=== PATIENT | female | born 1985 | race Caucasian/White ===

== ENCOUNTER 2019-08-20 06:54 | Day surgery (SDC) | payer BC ==
[2019-08-20] MEDS ORDERED: Sodium Chloride 0.9% 10 ML Syringe FLUSH PRN (07:00)
[2019-08-20] MEDS ORDERED: Lactated Ringers 1,000 ML IV SCH (07:00)
[2019-08-20] MEDS ORDERED: Lidocaine 1%/Sod Bicarbonate in NS 8.4% 1 ML Syringe IDERM PRN (07:00)
[2019-08-20] MEDS ORDERED: Bupivacaine 0.5% 30 ML SDV ONE (07:04)
[2019-08-20] MEDS ORDERED: Lidocaine 1% with EPINEPHrine 1:100,000 20 ML MDV ONE (07:04)
[2019-08-20] MEDS ORDERED: Lactated Ringers 1,000 ML ONE ×2 (07:17→09:51)
[2019-08-20] MEDS ORDERED: Ondansetron 4 MG/2 ML SDV ONE (07:17)
[2019-08-20] MEDS ORDERED: fentaNYL 250 MCG/5 ML SDV ONE (07:17)
[2019-08-20] MEDS ORDERED: Lidocaine 1% 4 ML ONE (07:17)
[2019-08-20] MEDS ORDERED: ceFAZolin 1 GM Vial ONE (07:17)
[2019-08-20] MEDS ORDERED: Propofol 200 MG/20 ML SDV ONE ×3 (07:17→09:29)
[2019-08-20] MEDS ORDERED: Midazolam 1 MG/ML 2 ML SDV ONE (07:17)
[2019-08-20] MEDS ORDERED: Rocuronium 50 MG/5 ML Vial ONE (07:17)
[2019-08-20] MEDS ORDERED: Ketamine 500 mg/10 ML MDV ONE (07:21)
--- NOTE | 2019-08-20 07:41 | PCM.PREANE ---
Preanesthetic Assessment - Procedure Proposed Procedure: Lap assisted vaginal hysterectomy - Anesthesia/Transfusion/Family Hx Anesthesia History: Prior Anesthesia Without Reaction Family History of Anesthesia Reaction: No Transfusion History: No Prior Transfusion(s) - Review of Systems General: No Symptoms Pulmonary: No Symptoms Cardiovascular: No Symptoms Gastrointestinal: No Symptoms Neurological: No Symptoms, Other (Fibromyalgia with daily marijuana use.) Other: Reports: Anxiety (PTSD) - Physical Assessment NPO Status Date: 08/19/19 NPO Status Time: 21:00 Vital Signs: Last Vital Signs Temp 37.0 C 08/20/19 07:05 Pulse 65 08/20/19 07:05 Resp 16 08/20/19 07:05 BP 111/82 08/20/19 07:05 Pulse Ox 98 08/20/19 07:05 Height: 1.6 m Weight: 77.111 kg ASA Class: 2 Mental Status: Alert & Oriented x3 Airway Class: Mallampati = 1 Dentition: Reports: Normal Dentition (Cap on molar, fillings. ) Thyro-Mental Finger Breadths: 3 Mouth Opening Finger Breadths: 3 ROM/Head Extension: Full Lungs: Clear to Auscultation, Normal Respiratory Effort Cardiovascular: Regular Rate, Regular Rhythm - Lab Values: Laboratory Last Values WBC 8.94 K/mm3 (3.98-10.04) 08/20/19 07:13 RBC 4.57 M/mm3 (3.98-5.22) 08/20/19 07:13 Hgb 14.1 gm/dl (11.2-15.7) 08/20/19 07:13 Hct 42.0 % (34.1-44.9) 08/20/19 07:13 MCV 91.9 fl (79.4-94.8) 08/20/19 07:13 MCH 30.9 pg (25.6-32.2) 08/20/19 07:13 MCHC 33.6 g/dl (32.2-35.5) 08/20/19 07:13 RDW Std Deviation 45.6 fL (36.4-46.3) 08/20/19 07:13 Plt Count 261 K/mm3 (182-369) 08/20/19 07:13 MPV 9.4 fl (9.4-12.3) 08/20/19 07:13 Neut % (Auto) 64.3 % (34.0-71.1) 08/20/19 07:13 Lymph % (Auto) 24.5 % (19.3-51.7) 08/20/19 07:13 [place] % (Auto) 8.7 % (4.7-12.5) 08/20/19 07:13 Eos % (Auto) 1.9 (0.7-5.8) 08/20/19 07:13 Baso % (Auto) 0.4 % (0.1-1.2) 08/20/19 07:13 Neut # (Auto) 5.74 K/mm3 (1.56-6.13) 08/20/19 07:13 Lymph # (Auto) 2.19 K/mm3 (1.18-3.74) 08/20/19 07:13 [place] # (Auto) 0.78 K/mm3 (0.24-0.36) H 08/20/19 07:13 Eos # (Auto) 0.17 K/mm3 (0.04-0.36) 08/20/19 07:13 Baso # (Auto) 0.04 K/mm3 (0.01-0.08) 08/20/19 07:13 Urine HCG, Qual Negative (NEGATIVE) 08/20/19 07:00 - Allergies Allergies/Adverse Reactions: Allergies Allergy/AdvReac Type Severity Reaction Status Date / Time amoxicillin Allergy Rash Verified 08/19/19 14:55 - Anesthesia Plan Pre-Op Medication Ordered: Anxiolytic - Acknowledgements Anesthesia Type Planned: General Anesthesia Pt an Appropriate Candidate for the Planned Anesthesia: Yes Alternatives and Risks of Anesthesia Discussed w Pt/Guardian: Yes Pt/Guardian Understands and Agrees with Anesthesia Plan: Yes PreAnesthesia Questionnaire HEENT History: Reports: None Cardiovascular History: Reports: None Respiratory History: Reports: None Gastrointestinal History: Reports: GERD, Other (See Below) Other Gastrointestinal History: 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 History: Reports: , Spontaneous Musculoskeletal History: Reports: Fibromyalgia Neurological History: Reports: None Psychiatric History: Reports: None, Anxiety, PTSD Endocrine/Metabolic History: Reports: Obesity/BMI 30+ Hematologic History: Reports: None Immunologic History: Reports: None Oncologic (Cancer) History: Reports: None Dermatologic History: Reports: None - Past Surgical History Head Surgeries/Procedures: Reports: None HEENT Surgical History: Reports: None Cardiovascular Surgical History: Reports: None Respiratory Surgical History: Reports: None GI Surgical History: Reports: Colonoscopy Female Surgical History: Reports: Section, D&C, LEEP, Tubal Ligation Male Surgical History: Reports: None Endocrine Surgical History: Reports: None Neurological Surgical History: Reports: None Musculoskeletal Surgical History: Reports: None Oncologic Surgical History: Reports: None Dermatological Surgical History: Reports: None - SUBSTANCE USE Smoking Status *Q: Current Some Day Smoker Tobacco Use Within Last Twelve Months: Cigarettes Days Per Week of Alcohol Use: 4 Number of Drinks Per Day: 2 Total Drinks Per Week: 8 Recreational Drug Use History: Yes Recreational Drug Type: Reports: Marijuana/Hashish Recreational Drug Last Use: 08/19/2019 - HOME MEDS Home Medications: Home Meds Cannabidiol (Cbd) Extract [CBD Oil] 1 dose PO ASDIRECTED 08/19/19 [History] Multivitamin [Multi-Vitamin Daily] 1 tab PO DAILY 08/19/19 [History] - CURRENT (IN HOUSE) MEDS Current Meds: Current Medications Lactated Ringer's (Ringers, Lactated) 1,000 mls @ 125 mls/hr IV ASDIRECTED SAMIRA Stop: 08/20/19 23:00 Lidocaine/Sodium Bicarbonate (Buffered Lidocaine 1% In Ns 8.4%) 0.25 ml IDERM ONETIME PRN PRN Reason: Prior to IV Start Stop: 08/20/19 18:00 Sodium Chloride (Saline Flush) 10 ml FLUSH ASDIRECTED PRN PRN Reason: Keep Vein Open Stop: 08/20/19 18:00 Discontinued Medications Bupivacaine HCl (Marcaine 0.5%) Confirm Administered Dose 30 ml .ROUTE .STK-MED ONE Stop: 08/20/19 07:05 Cefazolin Sodium (Ancef) Confirm Administered Dose 2 gm .ROUTE .STK-MED ONE Stop: 08/20/19 07:18 Fentanyl (Sublimaze) Confirm Administered Dose 250 mcg .ROUTE .STK-MED ONE Stop: 08/20/19 07:18 Lidocaine HCl (Xylocaine-Mpf 1%) Confirm Administered Dose 4 mls @ as directed .ROUTE .STK-MED ONE Stop: 08/20/19 07:18 Lactated Ringer's (Ringers, Lactated) Confirm Administered Dose 1,000 mls @ as directed .ROUTE .STK-MED ONE Stop: 08/20/19 07:18 Ketamine HCl (Ketalar) Confirm Administered Dose 500 mg .ROUTE .STK-MED ONE Stop: 08/20/19 07:22 Lidocaine/Epinephrine (Xylocaine 1% With Epinephrine 1:100,000) Confirm Administered Dose 20 ml .ROUTE .STK-MED ONE Stop: 08/20/19 07:05 Midazolam HCl (Versed 1 Mg/Ml) Confirm Administered Dose 2 mg .ROUTE .STK-MED ONE Stop: 08/20/19 07:18 Ondansetron HCl (Zofran) Confirm Administered Dose 4 mg .ROUTE .STK-MED ONE Stop: 08/20/19 07:18 Propofol (Diprivan 20 Ml) Confirm Administered Dose 400 mg .ROUTE .STK-MED ONE Stop: 08/20/19 07:18 Rocuronium [place] (Zemuron) Confirm Administered Dose 50 mg .ROUTE .STK-MED ONE Stop: 08/20/19 07:18
[2019-08-20] MEDS ORDERED: Ondansetron 4 MG/2 ML SDV IVPUSH PRN (08:31)
[2019-08-20] MEDS ORDERED: HYDROmorphone 0.5 MG/0.5 ML Syringe IVPUSH PRN (08:31)
[2019-08-20] MEDS ORDERED: fentaNYL 100 MCG/2 ML SDV IVPUSH PRN (08:31)
[2019-08-20] MEDS ORDERED: Midazolam 1 MG/ML 2 ML SDV IVPUSH PRN (08:32)
[2019-08-20] MEDS ORDERED: HYDROmorphone 0.5 MG/0.5 ML Syringe ONE (08:52)
[2019-08-20] MEDS ORDERED: ePHEDrine Sulfate/0.9% NaCl/Pf 25 MG/5 ML SYRINGE IV ONE (09:53)
[2019-08-20] MEDS ORDERED: fentaNYL 100 MCG/2 ML SDV ONE (10:18)
--- NOTE | 2019-08-20 10:29 | PCM.POSTAN ---
POST ANESTHESIA ASSESSMENT - MENTAL STATUS Mental Status: Other (Drowsy) - VITAL SIGNS Vital Signs: Last Vital Signs Temp 37.0 C 08/20/19 07:05 Pulse 65 08/20/19 07:05 Resp 16 08/20/19 07:05 BP 111/82 08/20/19 07:05 Pulse Ox 98 08/20/19 07:05 1020 103/57 72 15 94% 97.4F - RESPIRATORY Respiratory Status: Respiratory Rate WNL, Airway Patent, O2 Saturation Stable, Supplemental Oxygen - CARDIOVASCULAR CV Status: Pulse Rate WNL, Blood Pressure Stable - GASTROINTESTINAL GI Status: No Symptoms - PAIN Pain Score: 0 - POST OP HYDRATION Hydration Status: Adequate & Stable
--- NOTE | 2019-08-20 10:31 | PCM.OPNOTE ---
- General Post-Op/Procedure Note Date of Surgery/Procedure: 08/20/19 Operative Procedure(s): Laparoscopic assisted vaginal hysterectomy. Removal of bilateral distal fimbria (hx of tubal ligation in past) Findings: SVE with a mobile, mid position uterus. Laparoscopic evaluation shows normal appearance of the bilateral ovaries. Evidence of bilateral TL, Filshie clip noted on right. Moderate amount of scar tissue between the bladder and the lower uterine segment. 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 The patient was taken to the Operating Room where general anesthesia was induced without complication. The patient was placed in dorsal lithotomy with Carmine Stirrups and an exam under anesthesia revealed the findings detailed above. The patient was then prepped and draped in the usual sterile fashion. A sterile bivalve speculum was placed into the vagina and the anterior lip of the cervix was grasped with a single tooth tenaculum and a Zyrralka uterine manipulator was placed to allow uterine manipulation throughout the procedure. The speculum and single tooth tenaculum were removed from the vagina. A Thomas catheter was placed in sterile fashion. Attention was then turned to the patients abdomen where a Veress needle was carefully introduced into the peritoneal cavity while tenting the abdominal wall. Intraperitoneal placement was confirmed by free flow of saline into the abdomen from a syringe open to gravity and with a low intraabdominal pressure with insufflation of C02 gas on low flow. The gas was increased to high flow and a pneumoperitoneum was obtained with C02 gas to a pressure of 15 mm Hg. A 5 mm skin incision was made in a vertical fashion in the umbilical fold and a 5 mm blunt trocar was inserted into the abdomen with direct visualization of the laparoscope through the clear view trocar lens. 5 mm skin incisions were made in both the left and right lower quadrants approximately 10 cm lateral and 3 cm inferior to the umbilicus. 5 mm blunt trocars were inserted into the abdomen under direct visualization with care to avoid the abdominal wall vasculature. A blunt probe and grasper were inserted through the accessory ports and a survey of the abdomen revealed the findings detailed above. The fimbria of the right fallopian tube was elevated with the blunt graspers. The Ligasure was used to cauterize and transect this structure which was then removed out of the 5 mm port. Same procedure was carried out on the left. Next , the round ligament on the right was then elevated, cauterized, and transected with the Ligasure. Hemostasis was noted. Next, the vesicouterine peritoneum was elevated gently with a blunt grasper and the LigaSure was used dissect the vesicouterine peritoneum to make a bladder flap. Two more small bites along the right side of the uterus were made with the Ligasure to skeletonize the uterine artery. Hemostasis was noted. The exact same procedure was carried out on the left although there was less aggressive take down of a bladder flap due to very dilated uterine vessels. Hemostasis as noted. The CO2 gas was turned off and the laparoscope was removed. Attention was then turned to the vaginal portion of the procedure. A short weighted speculum was placed in the vagina, and the cervix was grasped with a single tooth tenaculum. The cervix was injected circumferentially with 10 mL 1% lidocaine with dilute epinephrine. The cervix was then circumferentially incised with a scalpel. A Raytec was used to bluntly dissect the cervix circumferentially until an avascular plane was obtained. The posterior cul-de- sac was entered sharply without difficulty. A 0-Vicryl pop-off suture was placed at six o'clock to include the posterior vaginal mucosa and posterior peritoneum. This stitch was tagged with a straight clamp to help with vaginal cuff closure at the end of the case. The short weighted speculum was replaced by the long weighted speculum. The uterosacral ligaments were grasped on either side with the Ligasure, cauterized, and transected. Hemostasis was assured. The bladder was dissected off the pubovesical cervical fascia anteriorly with a sponge and blunt dissection. The anteiror cul-de-sac was then entered sharply without difficulty. The cardinal ligaments were then serially clamped on both sides with the LigaSure, cauterized, and transecte. The uterine arteries were then clamped with the LigaSure, cauterized, and transected. Hemostasis was then noted. The fundus and adnexa were confirmed to be free of any further peritoneal attachments and then were pulled out through the vagina. There was slight bleeding from the left angle which was controlled with a single, interrupted suture of 0 vicryl placed in a figure of eight fashion. Next, the posterior peritoneum was closed with a running, locked suture of 0 vicryl. Finally, the vaginal cuff was closed with a 0-Vicryl in a running locked fashion. Hemostasis was noted. Attention was then again turned to the abdomen. All members of the surgical team changed gloves. The laparoscope was again inserted and the abdomen was again insufflated with CO2. The pedicles were again visualized. Irrigation of the pedicles was performed. Chu seal was placed along the vaginal cuff. Hemostasis was confirmed. The patient was taken out of Trendelenberg position. The accessory trocars were removed under direct visualization. The pneumoperitoneum was allowed to escape. The umbilical trocar was removed and lastly the camera was removed from the abdomen under direct visualization to confirm no herniation into the port site. All skin incisions were re- approximated with 4-0 Monocryl and sealed with Dermabond. Hemostasis was noted. A total of ~8 cc of 0.25% Marcaine was injected into the subcutaneous tissues surrounding the skin incisions for local anesthesia. All sponge, lap, needle, and instrument counts were correct x 2. The patient tolerated the procedure well and there were no complications. Thomas catheter removed from the bladder prior to leaving the OR
[2019-08-20] MEDS ORDERED: Acetaminophen/oxyCODONE 325-5 MG Tab PO PRN (11:05)
[2019-08-20] MEDS ORDERED: Haloperidol Lactate 5 MG/ML SDV IVPUSH ONE (12:14)
--- NOTE | 2019-08-20 13:02 | PCM48HPAN ---
Post Anesthesia Note - EVALUATION WITHIN 48HRS OF ANESTHETIC Vital Signs in Normal Range: Yes Patient Participated in Evaluation: Yes Respiratory Function Stable: Yes Airway Patent: Yes Cardiovascular Function Stable: Yes Hydration Status Stable: Yes Pain Control Satisfactory: Yes Nausea and Vomiting Control Satisfactory: Yes (Much improved. ) Mental Status Recovered: Yes Vital Signs: Last Vital Signs Temp 36.7 C 08/20/19 11:24 Pulse 58 L 08/20/19 12:30 Resp 14 08/20/19 12:30 BP 100/66 08/20/19 12:30 Pulse Ox 97 08/20/19 12:30
[2019-08-20 14:30] VITALS: BP 100/70; PULSE 57
== END 2019-08-20 14:16 | disposition home or self-care (01) ==
LOC: JD.SDS 06:54
PROVIDERS: ATTEND Obstetrics & Gynecology
DX: N80.0 Endometriosis of uterus (principal); N87.9 Dysplasia of cervix uteri, unspecified; N80.2 Endometriosis of fallopian tube; F17.210 Nicotine dependence, cigarettes, uncomplicated; Z98.51 Tubal ligation status; Z98.890 Other specified postprocedural states; Z88.0 Allergy status to penicillin; Z79.899 Other long term (current) drug therapy
CPT/HCPCS: 36415; 80048; 81025; 85025; 86850; 86900; 86901; A9270-GY; J0690; J1170; J1630; J2001; J2250; J2405; J2704; J3010; J3490; J7120

== ENCOUNTER 2019-08-23 10:29 | Emergency (ER) | payer BC ==
[2019-08-23 10:50] VITALS: BP 115/81; PULSE 71
--- NOTE | 2019-08-23 11:05 | EDM.PDOC ---
ED HPI GENERAL MEDICAL PROBLEM - General Chief Complaint: General Stated Complaint: NAUSEA/DIZZY - POST SURGERY Time Seen by Provider: 08/23/19 11:05 Source of Information: Reports: Patient, Old Records History Limitations: Reports: No Limitations - History of Present Illness INITIAL COMMENTS - FREE TEXT/NARRATIVE: Richa is a 34 year old female who presents today for urinary symptoms and difficulty controlling pain. Patient had hysterectomy with Dr. Feliciano 3 days ago. Reportedly the surgery was uneventful. She reports she was prescribed percocet for pain. Reports percocet is covering the pain but she has side effects of dizziness and nausea. No vomiting or syncope. No significant bleeding other than spotting. She is requesting something different for pain. Tried taking ibuprofen but did not feel this adequately controlled her pain. She also reports dysuria and increased urinary frequency and urgency. No fevers , back pain or abdominal pain. Reports diarrhea x 3 yesterday. Reports chills. Lower Abdomen Pain Score (Numeric/FACES): 6 - Related Data Allergies Allergy/AdvReac Type Severity Reaction Status Date / Time amoxicillin Allergy Rash Verified 08/23/19 10:43 Home Meds: Home Meds Acetaminophen/oxyCODONE [Percocet 325-5 MG] 1 - 2 each PO Q6H PRN #25 tab [Rx] Acetaminophen/HYDROcodone [[place] 325-5 MG] 1 tab PO Q6H PRN #20 tablet 08/23/19 [Rx] Nitrofurantoin Monohyd/M-Cryst [Macrobid 100 mg Capsule] 100 mg PO BID #10 capsule 08/23/19 [Rx] Ondansetron [Zofran ODT] 4 mg PO Q6H PRN #20 tab.dis 08/23/19 [Rx] Past Medical History HEENT History: Reports: None Cardiovascular History: Reports: None Respiratory History: Reports: None Gastrointestinal History: Reports: GERD, Other (See Below) Other Gastrointestinal History: 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: , 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 Musculoskeletal History: Reports: Fibromyalgia Neurological History: Reports: None Psychiatric History: Reports: None, Anxiety, PTSD Endocrine/Metabolic History: Reports: Obesity/BMI 30+ Hematologic History: Reports: None Immunologic History: Reports: None Oncologic (Cancer) History: Reports: None Dermatologic History: Reports: None - Past Surgical History Head Surgeries/Procedures: Reports: None HEENT Surgical History: Reports: None Cardiovascular Surgical History: Reports: None Respiratory Surgical History: Reports: None GI Surgical History: Reports: Colonoscopy Female Surgical History: Reports: Section, D&C, Hysterectomy, LEEP, Tubal Ligation Endocrine Surgical History: Reports: None Neurological Surgical History: Reports: None Musculoskeletal Surgical History: Reports: None Oncologic Surgical History: Reports: None Dermatological Surgical History: Reports: None Social & Family History - Family History Family Medical History: Noncontributory - Tobacco Use Smoking Status *Q: Current Some Day Smoker Years of Tobacco use: 1 Packs/Tins Daily: 0.1 - Caffeine Use Caffeine Use: Reports: Coffee - Recreational Drug Use Recreational Drug Use: No - Living Situation & Occupation Living situation: Reports: with Significant Other Occupation: Employed ED ROS GENERAL - Review of Systems Review Of Systems: See Below Constitutional: Reports: Chills. Denies: Fever GI/Abdominal: Reports: Diarrhea, Nausea. Denies: Abdominal Pain, Vomiting : Reports: Dysuria, Frequency, Urgency Neurological: Reports: Dizziness. Denies: Syncope ED EXAM, GENERAL - Physical Exam Exam: See Below Exam Limited By: No Limitations General Appearance: Alert, WD/WN, No Apparent Distress Eye Exam: Bilateral Eye: Normal Inspection, PERRL Ears: Normal External Exam, Normal Canal, Hearing Grossly Normal, Normal TMs Nose: Normal Inspection Throat/Mouth: Normal Inspection, Normal Lips, Normal Oropharynx, Normal Voice, No Airway Compromise Respiratory/Chest: No Respiratory Distress, Lungs Clear, Normal Breath Sounds Cardiovascular: Normal Peripheral Pulses, Regular Rate, Rhythm GI/Abdominal: Normal Bowel Sounds, Soft, Non-Tender, Other (abdominal surgical incisions well healing, no drainage or surrounding erythema) Neurological: Alert, Oriented, Normal Cognition Psychiatric: Normal Affect, Normal Mood Skin Exam: Warm, Dry, Normal Color Course - Vital Signs Last Recorded V/S: Last Vital Signs Temp 99.2 F 08/23/19 10:48 Pulse 71 08/23/19 10:48 Resp 16 08/23/19 10:48 BP 115/81 08/23/19 10:48 Pulse Ox 100 08/23/19 10:48 - Orders/Labs/Meds Labs: Laboratory Tests 08/23/19 Range/Units 10:54 Urine Color Yellow (Yellow) Urine Appearance Clear (Clear) Urine pH 6.5 (5.0-8.0) Ur Specific [place] 1.015 (1.005-1.030) Urine Protein Negative (Negative) Urine Glucose (UA) Negative (Negative) Urine Ketones Negative (Negative) Urine Occult Blood Negative (Negative) Urine Nitrite Negative (Negative) Urine Bilirubin Negative (Negative) Urine Urobilinogen 0.2 (0.2-1.0) Ur Leukocyte Esterase Negative (Negative) - Re-Assessments/Exams Free Text/Narrative Re-Assessment/Exam: 08/23/19 11:22 Ua reviewed with the patient. Will treat based on symptoms and being cathed recently for surgery. Will switch to norco for pain. She should follow-up with her ob if she continues to have problems. Discharge instructions as documented. Departure - Departure Time of Disposition: 11:25 Disposition: Home, Self-Care 01 Condition: Good Clinical Impression: Nausea, UTI, Urinary tract infectious disease, S/P hysterectomy - Discharge Information *PRESCRIPTION DRUG MONITORING PROGRAM REVIEWED*: Yes *COPY OF PRESCRIPTION DRUG MONITORING REPORT IN PATIENT NITZA: No Prescriptions: Acetaminophen/HYDROcodone [[place] 325-5 MG] 1 tab PO Q6H PRN #20 tablet PRN Reason: Pain Nitrofurantoin Monohyd/M-Cryst [Macrobid 100 mg Capsule] 100 mg PO BID #10 capsule Ondansetron [Zofran ODT] 4 mg PO Q6H PRN #20 tab.dis PRN Reason: Nausea Instructions: Nausea, Adult, Hysterectomy Information, [id number], Vaginal Hysterectomy, Care After Referrals: PCP,Not In Area [Primary Care Provider] - Brittany Feliciano MD [Physician] - Forms: ED Department Discharge Additional Instructions: Stop the percocet. Take Vicodin 1/2 to 1 tab PO every 6 hours prn pain. May take ibuprofen as needed for less severe pain. Vicoden is habit forming. Take as few of these as needed to control your pain. Do not drive or operate machinery within 10 hours of using prescription narcotic pain medication. macrobid 1 cap PI bid x 5 days. Drink plenty of fluids. Zofran 1 tab sublingual every 6-8 hors as needed for nausea. Contact your ob if you continue to have symptoms and difficulty controlling your pain this week. Please return to the ER should your symptoms change or worsen. Sepsis Event Note - Evaluation Sepsis Screening Result: No Definite Risk - Focused Exam Vital Signs: Vital Signs Temp Pulse Resp BP Pulse Ox 08/23/19 10:48 99.2 F 71 16 115/81 100 Date Exam was Performed: 08/23/19 Time Exam was Performed: 11:37
== END 2019-08-23 11:40 | disposition home or self-care (01) ==
LOC: JD.ED 10:29
DX: N39.0 Urinary tract infection, site not specified (principal); Z90.710 Acquired absence of both cervix and uterus; E66.9 Obesity, unspecified; Z68.31 Body mass index [BMI] 31.0-31.9, adult; F17.210 Nicotine dependence, cigarettes, uncomplicated; Z88.1 Allergy status to other antibiotic agents
CPT/HCPCS: 81003; 99283